=== PATIENT | male | born 1995 | race Hispanic/Latino ===

== ENCOUNTER 2019-07-25 14:08 | Day surgery (SDC) | payer OTHER, SELFPAY ==
[2019-07-25] VITALS (7 sets, daily range): BP systolic 111–144; BP diastolic 53–72; PULSE 61–73; RESP 16; TEMP 36.3–37; O2SAT 96–99; BMI 26.2
[2019-07-25] MEDS: Lactated Ringers 1,000 ML 100 ML IV (15:04)
--- NOTE | 2019-07-25 15:17 | RAD_ITS ---
STUDY: X-RAY - RIGHT FOOT CLINICAL: Male, 24 years old. FB removal in OR TECHNIQUE: 3 C-arm views(s) of the foot. 41 seconds fluoroscopy time. COMPARISON: None. FINDINGS: 3 C-arm views show removal of a curvilinear metal density related to the base of the first proximal phalanx. Correlate with procedure note. Electronically Signed: Jose Blake MD at 17:04 EST , Service support , RAD/Foot 2 Views
[2019-07-25] MEDS: Cefazolin 1 GM/50 ML BAG IV (15:28)
[2019-07-25] MEDS: Bupivacaine Mpf 0.5% 30 ML VIAL (15:50)
--- NOTE | 2019-07-25 16:25 | DCINST_ITS ---
Discharge Diet: No Restrictions Discharge Activity: May Not Drive, May not drive while taking narcotic pain medications. Weight Bearing Status: Weight bearing as tolerated - in pneumatic CAM boot only Keep extremity elevated above heart level: Right Leg Additional Activity Instructions:: Keep dressing to right foot clean, dry, intact. Do not get dressing wet. Do not change dressing. Protective dressing when bathing with plastic bag and tape or cast protector. I recommend sponge bath only. Elevate right foot above level of heart as much as possible over the next 7 days. Ice around right ankle 20 minutes on, 20 minutes off, every hour while awake for next 7 days. Continue to take antibiotic medications as prescribed. Take Tylenol and ibuprofen as needed. Walk on right foot in CAM boot only. Do not place weight on right foot without cam boot. Call your doctor if your incision/area has: Continuous Slow Oozing, Sudden Increased Bleeding Call your doctor if you observe: Fever of 101 or Higher, Coldness, Increased Pain, Shortness of breath, Chest pain, Increased palpitations (irregular heartbeat), Calf discomfort, Uncontrolled pain Cleanse incision/area with: Keep Dressing Clean & Dry Allergies/Adverse Reactions: Allergies No Known Allergies Allergy (Verified 07/25/19 14:37) Medications to take at Discharge NK 07/25/19 Primary Care Physician: Care Physician,No Primary [Primary Care Provider] - Test Results: Test results from this visit will be discussed in further detail at your follow- up appointment, if applicable. Please Follow Up With: Patrick Gale DPM When: 1 week Proposed Discharge Date: 07/25/19
--- NOTE | 2019-07-25 16:29 | OP.PCM_ITS ---
Problem List (1) Foreign body in foot, right Status: Acute Qualifiers: Encounter type: subsequent encounter Qualified Code(s): S90.851D - Superficial foreign body, right foot, subsequent encounter Report of Operation Date of Procedure: 07/25/19 Pre-Operative Diagnosis: Foreign body, right foot Post-Operative Diagnosis: Foreign body, right foot Surgery/Procedure Performed:: Removal of foreign body, right foot first metatarsal phalangeal joint. Washout of right foot first metatarsal phalangeal joint Description of Surgical Findings:: Consistent with diagnosis. Full removal of foreign body achieved. Type of Anesthesia:: Local MAC - 10 cc of 0.5 the Marcaine plain distributed in a Franks block fashion to the first ray of the right foot Anesthesiologist: Dino Marcelo Special Medications: 1 g of Ancef given preoperatively Specimen's removed: 1. Foreign body right foot first metatarsal phalangeal joint. #2 wound culture for aerobic, anaerobic, acid-fast, fungal organisms status post washout of first metatarsal phalangeal joint right foot. #3 PCR wound culture right foot status post washout Drains: None Estimated Blood Loss (mL): Minimal Description of Procedure: Anesthesia: IV sedation with a local block of the right lower extremity consisting of 10 cc of 0.5 the Marcaine plain distributed in a Franks fashion the first ray of the right foot Hemostasis: Pneumatic calf tourniquet placed to the level of the right calf at 250 mmHg for 20 minutes Estimated blood loss: Minimal Materials: 2-0 Vicryl, 3-0 Vicryl, 3-0 nylon Injectables: 10 mL of 0.5% Marcaine plain Complications: None Condition: Stable Indications: Patient is a 24-year-old male with no significant past medical history who presented to my office yesterday, July 24 for evaluation of a foreign body of his right foot. 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 Upon verbal questioning, patient relates that he was at his job on July 17. At that time, patient shot himself with a nail gun into his right foot. Patient then presented to the [place] emergency department for further evaluation. At that time, x-rays were taken revealing a nail in his right foot. The nail was removed in the emergency department, and the wound site was irrigated. Patient was then placed on oral antibiotics, Keflex. Patient then followed up with a physician in [place] on July 21. At that time, new x-rays were taken. This revealed a retained foreign body in the area of the first metatarsal phalangeal joint of the right foot. Patient was then sent to me for further evaluation. Upon taking new x-rays, there was a noticeable foreign body located at the level of the base of the proximal phalanx of the right hallux very close to the bone. I then discussed with the patient that this foreign body would need to be removed to prevent future complications. Furthermore, the chance of infection is high with a retained foreign body. I discussed with the patient that this would need to be removed as soon as possible. Patient was agreeable to the surgical intervention. I then changed the patient's antibiotics to oral clindamycin and ciprofloxacin for broader spectrum coverage. Operative report: Before the patient was brought to the operating room, the risks, benefits, possible outcomes, possible complications of the procedure were discussed with the patient. All the patient's questions were answered to his satisfaction and all of his concerns were addressed. No guarantees were made to the outcome of the procedure. Patient understood all aspects of the procedure, and consent was then signed by the patient. Patient was then brought into the operating room and placed on the operating table in supine position. After timeout, under IV sedation, a well-padded pneumatic calf tourniquet was placed to level of the right calf. Next, 10 mL of 0.5% Marcaine plain was distributed in a Franks block fashion to the first ray of the right foot. The right foot, ankle, leg were then scrubbed, prepped, draped in the usual sterile manner. Elevation of the right lower extremity was followed by exsanguination via Esmarch and inflation of the pneumatic calf tourniquet to 250 mmHg. At this time, radiographic evaluation was performed to determine the exact location of the foreign body. Once determined, a linear longitudinal incision was made starting on the dorsal medial aspect of the head of the first metatarsal of the right foot extending distally to the dorsal medial aspect of the base of the proximal phalanx of the hallux. This was approximately 2cm in length. This incision was deepened utilizing sharp and blunt dissection. Care was taken to retract all vital neural and vascular structures. All bleeders were cauterized and ligated as necessary. At this time, the foreign body was identified and removed from the patient's right foot. This looked like a piece of copper wire. This was then passed from the operative site to be sent for micro analysis. At this time, radiographic evaluation was performed and the foreign body was no longer present in the patient's right foot. Next, 3 L of normal sterile saline was used to irrigate the right foot first metatarsal phalangeal joint at the surgical site via a pulse lavage. After irrigation was performed, the right foot was then redraped. Next, a wound culture was taken of the right foot first metatarsal phalangeal joint for aerobic, anaerobic, acid-fast, fungal organisms. A PCR was also taken as well. The periosteal and capsular structures were then reapproximated and coapted utilizing 2-0 Vicryl. The subcutaneous tissue was reapproximated and coapted utilizing 3-0 Vicryl. The skin was reapproximated and coapted utilizing 3-0 nylon in a simple interrupted and horizontal mattress fashion. The pneumatic calf tourniquet was then released and a prompt hyperemic response noted to the entirety of the right lower extremity. Next, the surgical site was then dressed with Betadine soaked gauze, and a dry sterile dressing dressing consisting of 4 x 4 gauze wrapped with Kerlix. The right foot and ankle were then wrapped with an Raji bandage. Neurovascular status was assessed at the end of application and deemed intact to the right lower extremity. Patient tolerated the anesthesia and the procedure well and was transported to the PACU with vital signs stable and neurovascular status intact to the right lower extremity. After period of postoperative monitoring, patient will be discharged home with written and oral instructions for wound care and follow-up. At this time, patient is to keep the dressing clean, dry, intact. Patient to continue antibiotics until further identification with organisms is found. - Complications None - Admit VTE Documentation VTE Present on Admission: No VTE Mechan Device Prophylaxis: SCD's VTE Pharm Prophylaxis ordered?: No Reason prophylaxis not ordered:: Procedure Not Indicated
--- NOTE | 2019-07-25 16:37 | RAD_ITS ---
STUDY: X-RAY - RIGHT FOOT CLINICAL: Male, 24 years old. REMOVAL FOREIGN BODY RIGHT FIRST MTPJ TECHNIQUE: 3 view(s) of the foot. COMPARISON: None. FINDINGS: Normal talus, calcaneus, and tarsal bones. Normal visualized subtalar, talonavicular, calcaneocuboid, tarsal and tarsometatarsal articulations. Normal metatarsi. Normal metatarsophalangeal joint of the great toe. Normal tibial and fibular sesamoid bones. Normal interphalangeal joint of the great toe. Normal phalanges of the great toe. Normal second through fifth metatarsophalangeal joints. Normal interphalangeal joints and phalanges of the lesser toes. The soft tissue structures are unremarkable. No radiopaque foreign bodies are seen. RAD/Foot min 3 Views IMPRESSION: Normal x-ray examination of the foot. Electronically Signed: Jose Blake MD at 17:16 EST , Service support ,
== END 2019-07-25 17:54 | disposition home or self-care (01) ==
LOC: SDC 14:14 → AC 14:14
PROVIDERS: Referring Provider Podiatrist Foot & Ankle Surgery; Visit Provider Podiatrist Foot & Ankle Surgery
PROC: (CPT 28022; principal; 2019-07-25 15:50)
DX: S91.341A Puncture wound with foreign body, right foot, initial encounter (principal); W45.0XXA Nail entering through skin, initial encounter; W29.4XXA Contact with nail gun, initial encounter; Y93.9 Activity, unspecified; Y92.9 Unspecified place or not applicable; Y99.0 Civilian activity done for income or pay; E66.3 Overweight; Z68.26 Body mass index [BMI] 26.0-26.9, adult; F17.210 Nicotine dependence, cigarettes, uncomplicated
CPT/HCPCS: 28022; 73620; 73630; 76000; 87015; 87070; 87075; 87102; 87116; 87205; 87206; J7120; J2405